=== PATIENT | female | born 1970 | race Caucasian/White ===

== ENCOUNTER 2017-12-29 15:23 | Observation (INO) | payer OTHER ==
[~2017-12-29] VITALS: Ht 157.5 cm; Wt 106.0 kg
[2017-12-29] MEDS ORDERED: SODIUM CHLORIDE FLUSH 10ML SYR IVF ONE (16:00)
[2017-12-29 16:08] LABS: BASOPHILS # (AUTO) 0.09 x10^3/uL (0-0.1); BASOPHILS % (AUTO) 1 % (0-1); EOSINOPHILS # (AUTO) 0.17 x10^3/uL (0-0.4); EOSINOPHILS % (AUTO) 2 % (1-7); LYMPHOCYTES # (AUTO) 3.14 x10^3/uL (1-3.4); LYMPHOCYTES % (AUTO) 32 % (22-44); MD NO; MEAN CORPUSCULAR HEMOGLOBIN 30.3 pg (27.0-34.8); MEAN CORPUSCULAR HGB CONC 33.6 g/dL (32.4-35.8); MEAN CORPUSCULAR VOLUME 90.3 fL (80-100); MEAN PLATELET VOLUME 6.7 fL (7.4-10.4); MONOCYTES # (AUTO) 0.84 x10^3/uL (0.2-0.8); MONOCYTES % (AUTO) 9 % (2-9); NEUTROPHILS # (AUTO) 5.52 x10^3/uL (1.8-6.8); NEUTROPHILS % (AUTO) 57 % (42-75); PLATELET COUNT 300 x10^3/uL (130-400); RED BLOOD COUNT 5.14 x10^6/uL (3.82-5.3); RED CELL DISTRIBUTION WIDTH 12.6 % (9.6-15.2)
[2017-12-29 16:14] LABS: ALBUMIN 3.8 g/dL (3.4-5.0); ANION GAP 8 mmol/L (5-15); CALCIUM 8.7 mg/dL (8.5-10.1); CHLORIDE 105 mmol/L (98-107); CREATININE 0.92 mg/dL (0.55-1.02)
[2017-12-29 16:18] LABS: ALKALINE PHOSPHATASE 70 U/L (45-117); BILIRUBIN,TOTAL 0.4 mg/dL (0.2-1.0); TOTAL PROTEIN 7.8 g/dL (6.4-8.2)
[2017-12-29 16:22] LABS: ALANINE AMINOTRANSFERASE 34 U/L (12-78)
[2017-12-29 16:23] LABS: MICROSCOPIC NOT IND
[2017-12-29 16:26] LABS: CULTURE INDICATED? NO
[2017-12-29] MEDS ORDERED: OMNIPAQUE 350 MG/ML, 100ML BOTTLE ONE (17:52)
[2017-12-29] MEDS ORDERED: CEFOTETAN PMX 1GM/50ML 50 ML IV ONE (18:30)
[2017-12-29] MEDS ORDERED: EPINEPHRINE 1 MG/ML, 1ML ONE (18:54)
[2017-12-29] MEDS ORDERED: BUPIVACAINE/PF 0.5% ONE (18:54)
[2017-12-29] MEDS ORDERED: CEFOTETAN PMX 1GM/50ML 50 ML ONE (18:55)
[2017-12-29 19:02] VITALS: BP 163/89
[2017-12-29] MEDS ORDERED: FENTANYL PF 250 MCG/5ML ONE (19:28)
[2017-12-29] MEDS ORDERED: MIDAZOLAM 1 MG/ML, 2ML ONE (19:28)
[2017-12-29] MEDS ORDERED: SUCCINYLCHOLINE 20 MG/ML, 10ML ONE (19:47)
[2017-12-29] MEDS ORDERED: GLYCOPYRROLATE 0.2MG/1ML, 5ML ONE (19:47)
[2017-12-29] MEDS ORDERED: ROCURONIUM 10 MG/ML,10ML ONE (19:47)
[2017-12-29] MEDS ORDERED: PROPOFOL 10 MG/ML, 20ML ONE (19:47)
[2017-12-29] MEDS ORDERED: NEOSTIGMINE 1 MG/ML, 10ML ONE (19:47)
[2017-12-29] MEDS ORDERED: KETOROLAC 30 MG/1 ML ONE (19:47)
[2017-12-29] MEDS ORDERED: DEXAMETHASONE 4 MG/ML, 1ML ONE (19:47)
[2017-12-29] MEDS ORDERED: BUPIVACAINE/PF-EPI 0.5% 1:200K IM ONE (20:02)
[2017-12-29] MEDS ORDERED: ONDANSETRON 2MG/ML, 2ML IVPush PRN ×2 (20:30→22:30)
[2017-12-29] MEDS ORDERED: ACETAMINOPHEN 325 MG TABLET PO PRN (20:30)
[2017-12-29] MEDS ORDERED: ALBUTEROL SULFATE 2.5 MG/3 ML NPPB PRN (20:30)
[2017-12-29] MEDS ORDERED: LABETALOL 5MG/ML, 20ML IV PRN (20:30)
[2017-12-29] MEDS ORDERED: OXYcodone 5 MG/5 ML ORAL.SOL UDC PO PRN (20:30)
[2017-12-29] MEDS ORDERED: PROMETHAZINE 25 MG SUPP PR PRN (20:30)
[2017-12-29] MEDS ORDERED: hydrALAzine 20 MG/ML, 1ML IV PRN (20:30)
[2017-12-29] MEDS ORDERED: LORazepam 2 MG/ML, 1ML IVPush PRN (20:30)
[2017-12-29] MEDS ORDERED: MORPHINE SULFATE 4 MG/ML, 1ML IVPush PRN ×2 (20:30→22:30)
[2017-12-29] MEDS ORDERED: MEPERIDINE/PF 25MG/0.5ML IVPush PRN (20:30)
[2017-12-29] MEDS ORDERED: PROMETHAZINE 12.5 MG SUPP PR PRN (20:30)
[2017-12-29] MEDS ORDERED: PROMETHAZINE 25 MG/ML, 1ML IV PRN (20:30)
[2017-12-29] MEDS ORDERED: HYDROmorphone 1 MG/ML, 1ML IV PRN (20:30)
[2017-12-29] MEDS ORDERED: OXYcodone 5 MG/5 ML ORAL.SOL UDC ONE (20:44)
[2017-12-29] MEDS ORDERED: ACETAMINOPHEN 650 MG/20.3 ML UDC ONE (20:44)
[2017-12-29] MEDS ORDERED: FENTANYL PF 100 MCG/2ML ONE (20:55)
[2017-12-29] MEDS: FENTANYL PF 100 MCG/2ML IV PRN ×2 (20:57→21:12)
[2017-12-29] MEDS ORDERED: HYDROcodone/APAP 5/325 TABLET PO PRN (22:30)
[2017-12-29] MEDS ORDERED: HYDR-3240 PO (23:37)
[2017-12-29] MEDS ORDERED: ONDA4TAB7 PO (23:38)
== END 2017-12-29 23:59 | disposition home or self-care (01) ==
LOC: ED 18:18 → EDIP 18:19 → ED 18:32 → 4NOR 21:48
PROVIDERS: ADMIT Surgery Vascular Surgery; ATTEND Surgery Vascular Surgery
DX: K35.80 Unspecified acute appendicitis (principal); E11.9 Type 2 diabetes mellitus without complications; I10 Essential (primary) hypertension; E66.01 Morbid (severe) obesity due to excess calories; F10.10 Alcohol abuse, uncomplicated
CPT/HCPCS: 36415; 44970; 74177; 80053; 81003; 83690; 84703; 85025; 88304; 96365; 99285; G0378; J0171; J0330; J1100; J1885; J2250; J2704; J2710; J3010; J3490; Q9967; S0074

== ENCOUNTER → 2018-02-10 | Outpatient (CLI) | payer OTHER ==
[~2018-02-10] MED LIST: HYDR-3240 PO; ONDA4TAB7 PO
== END | disposition home or self-care (01) ==
LOC: CFH 09:54
PROVIDERS: ATTEND Family Medicine
DX: Z12.31 Encounter for screening mammogram for malignant neoplasm of breast (principal)
CPT/HCPCS: 77063; 77067